=== PATIENT | female | born 2000 | race Caucasian/White ===

== ENCOUNTER 2023-01-30 19:07 | Emergency (ER) | payer MEDICAID ==
[~2023-01-30] VITALS: Ht 172.7 cm; Wt 52.1 kg
[2023-01-30 19:22] VITALS: BP 145/79; PULSE 64; RESP 12; TEMP 98.3; O2SAT 100
[2023-01-30 20:06] LABS: CLARITY URINE CLOUDY (CLEAR); COLOR URINE YELLOW (YELLOW); GLUCOSE URINE NEGATIVE (NEGATIVE); KETONES URINE 2+ (NEGATIVE); LEUKOCYTE ESTERASE URINE 2+ (NEGATIVE); NITRITE URINE POSITIVE (NEGATIVE); OCCULT BLOOD URINE 1+ (NEGATIVE); PROTEIN URINE 1+ (NEGATIVE); SPECIFIC GRAVITY URINE 1.021 (1.005-1.030)
[2023-01-30 20:30] LABS: BACTERIA URINE 3+
[2023-01-30 20:31] LABS: SQUAMOUS EPITHELIAL CELL URINE 1+ /lpf (RARE/1+)
[2023-01-30 20:32] LABS: WBC URINE TNTC /hpf (0-2)
[2023-01-30] MEDS ORDERED: PYR200 MT (21:39)
[2023-01-30] MEDS ORDERED: CEFP200T13 MT ×3 (21:39→21:41)
== END 2023-01-30 21:58 | disposition home or self-care (01) ==
LOC: ER 19:07
DX: N39.0 Urinary tract infection, site not specified (principal)
CPT/HCPCS: 81003; 81025; 87186; 99283